=== PATIENT | male | born 1935 | race African-American/Black ===

== ENCOUNTER 2020-07-08 16:11 | Inpatient (IN) | payer MEDICARE, OTHER ==
[~2020-07-08] VITALS: Ht 172.7 cm; Wt 109.8 kg
[2020-07-08] MEDS ORDERED: ACETAMINOPHEN 325MG TABLET PO STA (16:43)
[2020-07-08] MEDS ORDERED: VANCOMYCIN 1 G PREMIX 200 ML IV ONE (17:00)
[2020-07-08] MEDS ORDERED: CEFTRIAXONE 1 G PREMIX 50 ML IV ONE (17:00)
[2020-07-08] MEDS ORDERED: SODIUM CHLORIDE 0.9% 1000ML BAG (SEPSIS BOLUS) IV ONE (17:00)
[2020-07-08 17:51] LABS: HEMATOCRIT. 40.3 % (42.0-52.0); HEMOGLOBIN. 13.4 g/dL (14.0-18.0); MEAN CORPUSCULAR HEMOGLOBIN 27.1 pg (28.0-32.0); MEAN CORPUSCULAR VOLUME 81.2 fL (80.0-94.0); MEAN PLATELET VOLUME 7.4 fl (7.4-10.4); PLATELET 268 x1000/uL (130-400); RED BLOOD CELL COUNT 4.96 mill/uL (4.7-6.1); RED CELL DISTRIBUTION WIDTH 18.4 % (11.6-14.6)
[2020-07-08 17:57] LABS: CHLORIDE 99 mEq/L (98-107)
[2020-07-08 18:00] LABS: INR 1.2; PROTHROMBIN TIME 12.2 sec (9.6-11.0)
[2020-07-08 19:03] LABS: PLATELET ESTIMATE NORMAL
[2020-07-08] MEDS ORDERED: ONDANSETRON HCL 4MG/2ML INJ IV PRN (19:15)
[2020-07-09] MEDS: LEVOFLOXACIN 500MG PREMIX 100 ML IV SCH ×2 (00:21→19:30)
[2020-07-09 01:06] LABS: CLARITY URINE CLOUDY (CLEAR); COLOR URINE DARK YELLOW (YELLOW); KETONES URINE TRACE (NEGATIVE); LEUKOCYTE ESTERASE URINE 2+ (NEGATIVE); NITRITE URINE POSITIVE (NEGATIVE); OCCULT BLOOD URINE 1+ (NEGATIVE); PROTEIN URINE 1+ (NEGATIVE); SPECIFIC GRAVITY URINE 1.023 (1.005-1.030)
[2020-07-09] MEDS: METRONIDAZOLE 500 MG PREMIX 100 ML IV SCH ×3 (01:20→13:05)
[2020-07-09] MEDS: METOPROLOL TARTRATE 50MG TABLET PO SCH ×2 (03:15→10:00)
[2020-07-09] MEDS ORDERED: VANCOMYCIN 1 G PREMIX 200 ML IV SCH (03:15)
[2020-07-09] MEDS ORDERED: CEFTRIAXONE 1 G PREMIX 50 ML IV SCH (03:15)
[2020-07-09] MEDS: DEXT 5%/0.45% NACL 1000ML 1,000 ML IV SCH ×2 (10:02→23:20)
[2020-07-09] MEDS ORDERED: IOHEXOL-300 100 ML BOTTLE ONE (11:02)
[2020-07-09 13:28] LABS: BASOPHILS % 0.2 % (0.0-2.0); EOSINOPHILS % 0.1 % (0.0-5.0); HEMATOCRIT. 38.5 % (42.0-52.0); HEMOGLOBIN. 12.3 g/dL (14.0-18.0); LYMPHOCYTES % 9.4 % (20.0-50.0); MEAN CORPUSCULAR HEMOGLOBIN 26.4 pg (28.0-32.0); MEAN CORPUSCULAR VOLUME 82.6 fL (80.0-94.0); MEAN PLATELET VOLUME 7.5 fl (7.4-10.4); MONOCYTES % 13.6 % (2.0-8.0); NEUTROPHILS % 76.7 % (40.0-76.0); PLATELET 215 x1000/uL (130-400); RED BLOOD CELL COUNT 4.67 mill/uL (4.7-6.1)
[2020-07-09 13:30] LABS: CHLORIDE 105 mEq/L (98-107)
[2020-07-09 21:47] LABS: BG BASE EXCESS 0.8 mmol/L (-2.0-2.0); BG CARBOXYHEMOGLOBIN 0.4 % (0.5-1.5); BG DEOXYHEMOGLOBIN 5.9 % (0.0-5.0); BG FRACTION INSPIRED OXYGEN 40; BG HCO3 ACT 26.5 mmol/L (22.0-26.0); BG METHEMOGLOBIN 0.1 % (0.0-1.5); BG OXYGEN SATURATION 94.1 % (92.0-98.5); BG OXYHEMOGLOBIN 93.6 % (94.0-97.0); BG PCO2 46.4 mmHg (35.0-45.0); BG PH 7.374 (7.350-7.450); BG PO2 70.1 mmHg (75.0-100.0); BG TOTAL HEMOGLOBIN 13.8 g/dL (12.0-18.0); BG VENT MODE NASAL CANNULA
[2020-07-10] MEDS: METOPROLOL TARTRATE 50MG TABLET PO SCH ×3 (00:37→21:48)
[2020-07-10] MEDS: ENOXAPARIN 30MG/0.3ML SYR SUBCUT SCH ×3 (00:38→21:48)
[2020-07-10] MEDS: ACETAMINOPHEN 325MG TABLET PO PRN (05:55)
[2020-07-10 06:39] LABS: CHLORIDE 103 mEq/L (98-107)
[2020-07-10 06:43] LABS: BASOPHILS % 0.5 % (0.0-2.0); EOSINOPHILS % 0.2 % (0.0-5.0); HEMATOCRIT. 38.8 % (42.0-52.0); HEMOGLOBIN. 12.7 g/dL (14.0-18.0); LYMPHOCYTES % 16.5 % (20.0-50.0); MEAN CORPUSCULAR HEMOGLOBIN 26.6 pg (28.0-32.0); MEAN CORPUSCULAR VOLUME 81.7 fL (80.0-94.0); MEAN PLATELET VOLUME 7.3 fl (7.4-10.4); MONOCYTES % 12.5 % (2.0-8.0); NEUTROPHILS % 70.3 % (40.0-76.0); PLATELET 201 x1000/uL (130-400); RED BLOOD CELL COUNT 4.76 mill/uL (4.7-6.1); RED CELL DISTRIBUTION WIDTH 18.7 % (11.6-14.6)
[2020-07-10 10:22] LABS: BG BASE EXCESS 1.5 mmol/L (-2.0-2.0); BG CARBOXYHEMOGLOBIN 0.3 % (0.5-1.5); BG FRACTION INSPIRED OXYGEN 36; BG HCO3 ACT 27.1 mmol/L (22.0-26.0); BG METHEMOGLOBIN 0.3 % (0.0-1.5); BG OXYHEMOGLOBIN 92.4 % (94.0-97.0); BG PCO2 46.7 mmHg (35.0-45.0); BG PH 7.382 (7.350-7.450); BG PO2 65.8 mmHg (75.0-100.0); BG SAMPLE SITE RIGHT RADIAL; BG TOTAL HEMOGLOBIN 13.7 g/dL (12.0-18.0); BG VENT MODE NASAL CANNULA
[2020-07-10] MEDS ORDERED: LEVO25TA7 PO (14:29)
[2020-07-10] MEDS ORDERED: AMLO10TA80 PO (14:31)
[2020-07-10] MEDS ORDERED: ESCI10TA PO (14:31)
[2020-07-10] MEDS ORDERED: FINA1TAB18 PO (14:31)
[2020-07-10] MEDS ORDERED: OMEP20CA14 PO (14:32)
[2020-07-10] MEDS ORDERED: ATOR10TA69 PO (14:32)
[2020-07-10] MEDS ORDERED: ALLO100T PO (14:32)
[2020-07-10] MEDS ORDERED: BISO5TAB13 PO (14:33)
[2020-07-10 14:51] VITALS: BP 107/80
[2020-07-10 16:00] VITALS: BP 158/75
[2020-07-10] MEDS: DEXT 5%/0.45% NACL 1000ML 1,000 ML IV SCH (17:52)
[2020-07-10 20:00] VITALS: BP 194/97
[2020-07-10] MEDS: LEVOFLOXACIN 500MG PREMIX 100 ML IV SCH (21:48)
[2020-07-11] VITALS: BP 143/78
[2020-07-11] MEDS ORDERED: LABETALOL 5MG/ML SYR 20 MG/4 ML SYRINGE IV SCH ×2 (02:00→04:00)
[2020-07-11] MEDS: DEXT 5%/0.45% NACL 1000ML 1,000 ML IV SCH ×2 (02:18→17:28)
[2020-07-11] MEDS: ACETAMINOPHEN 325MG TABLET PO PRN (03:23)
[2020-07-11 04:00] VITALS: BP 104/55
[2020-07-11 08:00] VITALS: BP 137/71
[2020-07-11] MEDS: METOPROLOL TARTRATE 50MG TABLET PO SCH ×2 (09:52→21:00)
[2020-07-11] MEDS: ENOXAPARIN 30MG/0.3ML SYR SUBCUT SCH ×2 (09:53→22:11)
[2020-07-11 12:00] VITALS: BP 130/70
[2020-07-11] MEDS: FINASTERIDE 5MG TABLET PO SCH (12:46)
[2020-07-11] MEDS: DEXAMETHASONE 4MG TABLET PO SCH (12:46)
[2020-07-11 16:00] VITALS: BP 155/73
[2020-07-11 20:00] VITALS: BP 127/63
[2020-07-11] MEDS: LEVOFLOXACIN 500MG PREMIX 100 ML IV SCH (22:11)
[2020-07-12] VITALS: BP 132/70
[2020-07-12 04:00] VITALS: BP 138/70
[2020-07-12] MEDS: LEVOTHYROXINE SODIUM 25MCG TABLET PO SCH (06:51)
[2020-07-12] MEDS: DEXT 5%/0.45% NACL 1000ML 1,000 ML IV SCH ×2 (06:51→17:42)
[2020-07-12] MEDS: OMEPRAZOLE 20MG CAPSULE EXTENDED RELEASE PO SCH (06:52)
[2020-07-12 08:00] VITALS: BP 133/64
[2020-07-12] MEDS: METOPROLOL TARTRATE 50MG TABLET PO SCH ×2 (09:52→22:03)
[2020-07-12] MEDS: DEXAMETHASONE 4MG TABLET PO SCH (09:53)
[2020-07-12] MEDS: FINASTERIDE 5MG TABLET PO SCH (09:53)
[2020-07-12] MEDS: ENOXAPARIN 30MG/0.3ML SYR SUBCUT SCH ×2 (09:54→22:04)
[2020-07-12 12:00] VITALS: BP 124/80
[2020-07-12 14:44] LABS: BG BASE EXCESS 3.1 mmol/L (-2.0-2.0); BG CARBOXYHEMOGLOBIN 0.7 % (0.5-1.5); BG DEOXYHEMOGLOBIN 11.1 % (0.0-5.0); BG HCO3 ACT 26.4 mmol/L (22.0-26.0); BG METHEMOGLOBIN 0.2 % (0.0-1.5); BG OXYGEN SATURATION 88.8 % (92.0-98.5); BG PH 7.483 (7.350-7.450); BG PO2 52.1 mmHg (75.0-100.0); BG SAMPLE SITE RIGHT RADIAL; BG TOTAL HEMOGLOBIN 13.7 g/dL (12.0-18.0); BG VENT MODE ROOM AIR
[2020-07-12 16:00] VITALS: BP 151/75
[2020-07-12 20:00] VITALS: BP 130/53
[2020-07-12] MEDS: LEVOFLOXACIN 500MG PREMIX 100 ML IV SCH (22:03)
[2020-07-13] VITALS: BP 149/60
[2020-07-13 04:00] VITALS: BP 158/68
[2020-07-13 08:00] VITALS: BP 166/70
[2020-07-13] MEDS: OMEPRAZOLE 20MG CAPSULE EXTENDED RELEASE PO SCH (10:03)
[2020-07-13] MEDS: DEXAMETHASONE 4MG TABLET PO SCH (10:03)
[2020-07-13] MEDS: FINASTERIDE 5MG TABLET PO SCH (10:03)
[2020-07-13] MEDS: LEVOTHYROXINE SODIUM 25MCG TABLET PO SCH (10:03)
[2020-07-13] MEDS: METOPROLOL TARTRATE 50MG TABLET PO SCH ×2 (10:04→21:28)
[2020-07-13] MEDS: DEXT 5%/0.45% NACL 1000ML 1,000 ML IV SCH (10:04)
[2020-07-13] MEDS: ENOXAPARIN 30MG/0.3ML SYR SUBCUT SCH ×2 (10:05→21:27)
[2020-07-13 12:00] VITALS: BP 155/69
[2020-07-13] MEDS: AMLODIPINE 10MG TABLET PO SCH (15:26)
[2020-07-13 16:00] VITALS: BP 133/63
[2020-07-13 17:29] LABS: BASOPHILS % 0.2 % (0.0-2.0); HEMATOCRIT. 43.6 % (42.0-52.0); HEMOGLOBIN. 14.2 g/dL (14.0-18.0); LYMPHOCYTES % 8.7 % (20.0-50.0); MEAN CORPUSCULAR HEMOGLOBIN 26.2 pg (28.0-32.0); MEAN CORPUSCULAR VOLUME 80.3 fL (80.0-94.0); MEAN PLATELET VOLUME 7.6 fl (7.4-10.4); MONOCYTES % 5.7 % (2.0-8.0); NEUTROPHILS % 85.4 % (40.0-76.0); PLATELET 240 x1000/uL (130-400); RED BLOOD CELL COUNT 5.44 mill/uL (4.7-6.1); RED CELL DISTRIBUTION WIDTH 18.7 % (11.6-14.6)
[2020-07-13 17:51] LABS: CHLORIDE 95 mEq/L (98-107)
[2020-07-13 17:58] LABS: T4 FREE 0.97 ng/dL (0.76-1.46)
[2020-07-13 20:00] VITALS: BP 158/58
[2020-07-13] MEDS ORDERED: ALBUTEROL 6.7GM HFA INHALER ORI PRN (20:30)
[2020-07-13] MEDS: GUAIFENESIN 200MG/10ML SUGAR FREE UDC PO PRN (21:27)
[2020-07-14] VITALS: BP 151/64
[2020-07-14 04:00] VITALS: BP 173/94
[2020-07-14] MEDS: DEXT 5%/0.45% NACL 1000ML 1,000 ML IV SCH ×3 (06:37→23:10)
[2020-07-14] MEDS: GUAIFENESIN 200MG/10ML SUGAR FREE UDC PO PRN (06:38)
[2020-07-14] MEDS: CLONIDINE 0.1MG TABLET PO PRN (06:38)
[2020-07-14] MEDS: LEVOTHYROXINE SODIUM 25MCG TABLET PO SCH (06:40)
[2020-07-14] MEDS: FAMOTIDINE 20MG TABLET PO SCH ×2 (06:40→17:06)
[2020-07-14 08:00] VITALS: BP 146/66
[2020-07-14] MEDS: DEXAMETHASONE 4MG TABLET PO SCH (10:40)
[2020-07-14] MEDS: AMLODIPINE 10MG TABLET PO SCH (10:42)
[2020-07-14] MEDS: FINASTERIDE 5MG TABLET PO SCH (10:42)
[2020-07-14] MEDS: ENOXAPARIN 30MG/0.3ML SYR SUBCUT SCH ×2 (10:43→22:17)
[2020-07-14] MEDS: HYDRALAZINE HCL 50MG TABLET PO SCH ×2 (10:49→22:16)
[2020-07-14 12:00] VITALS: BP 136/62
[2020-07-14 16:00] VITALS: BP 148/83
[2020-07-14] MEDS: BENZONATATE 100MG CAPSULE PO SCH (17:06)
[2020-07-14 20:00] VITALS: BP 129/66
[2020-07-14] MEDS: METOPROLOL TARTRATE 25MG TABLET PO SCH (22:16)
[2020-07-15] VITALS: BP 141/72
[2020-07-15] MEDS: BENZONATATE 100MG CAPSULE PO SCH ×3 (01:39→17:04)
[2020-07-15 04:00] VITALS: BP 132/78
[2020-07-15] MEDS: FAMOTIDINE 20MG TABLET PO SCH ×2 (06:51→17:03)
[2020-07-15] MEDS: LEVOTHYROXINE SODIUM 25MCG TABLET PO SCH (06:51)
[2020-07-15 08:00] VITALS: BP 139/51
[2020-07-15] MEDS: ENOXAPARIN 30MG/0.3ML SYR SUBCUT SCH ×2 (09:00→20:28)
[2020-07-15] MEDS: DEXAMETHASONE 4MG TABLET PO SCH (09:02)
[2020-07-15] MEDS: FINASTERIDE 5MG TABLET PO SCH (09:02)
[2020-07-15] MEDS: METOPROLOL TARTRATE 25MG TABLET PO SCH ×2 (09:03→20:28)
[2020-07-15] MEDS: AMLODIPINE 10MG TABLET PO SCH (09:03)
[2020-07-15] MEDS: HYDRALAZINE HCL 50MG TABLET PO SCH ×2 (09:03→20:28)
[2020-07-15 12:00] VITALS: BP 139/79
[2020-07-15] MEDS: DEXT 5%/0.45% NACL 1000ML 1,000 ML IV SCH (12:45)
[2020-07-15 16:00] VITALS: BP 130/52
[2020-07-15 20:00] VITALS: BP 132/52
[2020-07-16] VITALS: BP_SYST 120; BP_SYST 132; BP_DIAS 52; BP_DIAS 72
[2020-07-16] MEDS: BENZONATATE 100MG CAPSULE PO SCH ×3 (01:34→16:30)
[2020-07-16] MEDS: DEXT 5%/0.45% NACL 1000ML 1,000 ML IV SCH ×2 (01:35→17:59)
[2020-07-16 04:00] VITALS: BP 115/70
[2020-07-16] MEDS: FAMOTIDINE 20MG TABLET PO SCH ×2 (06:42→17:58)
[2020-07-16] MEDS: LEVOTHYROXINE SODIUM 25MCG TABLET PO SCH (06:42)
[2020-07-16 08:00] VITALS: BP 184/79
[2020-07-16] MEDS: HYDRALAZINE HCL 50MG TABLET PO SCH (10:04)
[2020-07-16] MEDS: AMLODIPINE 10MG TABLET PO SCH (10:04)
[2020-07-16] MEDS: FINASTERIDE 5MG TABLET PO SCH (10:05)
[2020-07-16] MEDS: DEXAMETHASONE 4MG TABLET PO SCH (10:05)
[2020-07-16] MEDS: METOPROLOL TARTRATE 25MG TABLET PO SCH (10:05)
[2020-07-16] MEDS: ENOXAPARIN 30MG/0.3ML SYR SUBCUT SCH (10:06)
[2020-07-16 12:00] VITALS: BP 120/78
[2020-07-16 16:00] VITALS: BP 159/69
[2020-07-16] MEDS: CLONIDINE 0.1MG TABLET PO PRN (19:55)
[2020-07-16 19:57] VITALS: BP 167/63
== END 2020-07-16 20:51 | disposition home health service (06) | DRG 871 ==
LOC: ER 16:11 → MICUSO 19:00 → EDBEDREQ 19:04 → EDBEDREQTM 19:04 → 7WST 07-10 10:23
PROVIDERS: ADMIT Internal Medicine; ATTEND Internal Medicine
DX: A41.89 Other specified sepsis (principal); U07.1 COVID-19; J96.01 Acute respiratory failure with hypoxia; J12.89 Other viral pneumonia; E44.1 Mild protein-calorie malnutrition; E87.1 Hypo-osmolality and hyponatremia; N39.0 Urinary tract infection, site not specified; E87.2 Acidosis; G93.40 Encephalopathy, unspecified; I47.1 Supraventricular tachycardia; D18.03 Hemangioma of intra-abdominal structures; E11.9 Type 2 diabetes mellitus without complications; F03.90 Unspecified dementia, unspecified severity, without behavioral disturbance, psychotic disturbance, mood disturbance, and anxiety; I11.0 Hypertensive heart disease with heart failure; I50.9 Heart failure, unspecified; K57.90 Diverticulosis of intestine, part unspecified, without perforation or abscess without bleeding; K80.20 Calculus of gallbladder without cholecystitis without obstruction; N40.0 Benign prostatic hyperplasia without lower urinary tract symptoms; R65.20 Severe sepsis without septic shock; B97.89 Other viral agents as the cause of diseases classified elsewhere; R74.01 Elevation of levels of liver transaminase levels; D13.4 Benign neoplasm of liver; R00.1 Bradycardia, unspecified; Z68.36 Body mass index [BMI] 36.0-36.9, adult; Z93.59 Other cystostomy status; Z79.899 Other long term (current) drug therapy
CPT/HCPCS: 36415; 36600; 71045; 74177; 76705; 80048; 80053; 81003; 82375; 82728; 82805; 83605; 84145; 84439; 84443; 84481; 84484; 85025; 85379; 86140; 87077; 87186; 87426; 87635; 93005; 99291; J0696; J1650; J1956; J2405; J3370; J3490; J7030; J8540; Q9967; U0003